=== PATIENT | female | born 1945 | race Hispanic/Latino ===

== ENCOUNTER → 2023-03-21 | Outpatient (CLI) | payer MEDICARE ==
[~2023-03-21] MED LIST: IOHEXOL 350 MG/ML 100ML INFUS..BTL IV ONE
== END | disposition home or self-care (01) ==
LOC: RAH 03-07 07:49
PROVIDERS: ATTEND Student in an Organized Health Care Education/Training Program
DX: R07.9 Chest pain, unspecified (principal); M47.815 Spondylosis without myelopathy or radiculopathy, thoracolumbar region
CPT/HCPCS: 75574; Q9967

== ENCOUNTER 2024-05-19 10:47 | Emergency (ER) | payer OTHER ==
[~2024-05-19] VITALS: Ht 160 cm; Wt 60.8 kg
[~2024-05-19 10:47] MED LIST changes: +AMBROXOL PO; +CHRO1000 PO; -IOHEXOL 350 MG/ML 100ML INFUS..BTL IV ONE; +LORATADINE PO; +MONT-39 PO; +SUPER SUPPLEMENTAL PO; +UBID300C3 PO; +[UNRECOGNIZED DRUG - CODE] PO
[2024-05-19 11:23] LABS: BASOPHILS # (AUTO) 0.02 K/uL (0.00-0.20); BASOPHILS % (AUTO) 0.2 % (0.0-5.0); EOSINOPHILS # (AUTO) 0.01 K/uL (0.00-0.70); EOSINOPHILS % (AUTO) 0.1 % (0.0-8.0); HEMATOCRIT 38.3 % (36-48); IMMATURE GRANULOCYTE ABSOLUTE 0.07 K/uL (0-1); LYMPHOCYTES # (AUTO) 1.6 K/uL (1.0-4.8); LYMPHOCYTES % (AUTO) 12.8 % (21.0-51.0); MEAN CORPUSCULAR HEMOGLOBIN 31.1 pg (27.0-33.0); MEAN CORPUSCULAR HGB CONC 34.7 g/dL (32.0-36.0); MEAN CORPUSCULAR VOLUME 89.7 fL (79-99); MONOCYTES # (AUTO) 1.5 K/uL (0.1-1.0); NEUTROPHILS % (AUTO) 74.3 % (40.0-77.0); PLATELET COUNT (AUTO) 288 K/uL (130-400); RED BLOOD CELL COUNT(AUTO) 4.27 MIL/uL (4.00-5.50); RED CELL DISTRIBUTION WIDTH 14.6 % (11.0-15.5); WHITE BLOOD COUNT (AUTO) 12.1 K/uL (4.8-10.8)
[2024-05-19] MEDS ORDERED: dexaMETHasone SOD PHOSPHATE 4 MG/ML 1ML VIAL IV ONE (11:30)
[2024-05-19 12:03] LABS: CREATININE 0.7 mg/dL (0.5-1.0); POTASSIUM 3.5 mmol/L (3.5-5.1)
[2024-05-19] MEDS: ondanSETRON 4MG INJ IVP ONE (13:35)
[2024-05-19] MEDS: LIDOCAINE HCL 2% VISCOUS 15 ML UDCUP PO ONE (14:26)
[2024-05-19] MEDS: MAG/ALUM/SIMETH 30 ML UDCUP PO ONE (14:26)
[2024-05-19] MEDS: morPHINE 2 MG SYG IVP ONE (14:29)
[2024-05-19] MEDS ORDERED: LACT10SO85 PO (14:49)
[2024-05-19] MEDS ORDERED: DICY20TA2 PO (14:49)
[2024-05-19] MEDS ORDERED: [UNRECOGNIZED DRUG - CODE] PR (14:49)
[2024-05-19 15:18] VITALS: BP 145/86; PULSE 78; RESP 18; TEMP 98.5; O2SAT 98
== END 2024-05-19 15:19 | disposition home or self-care (01) ==
LOC: EDH 10:47
DX: G89.18 Other acute postprocedural pain (principal); Z79.899 Other long term (current) drug therapy; Z98.890 Other specified postprocedural states
CPT/HCPCS: 99283; 96374; 82270; 80048; 85025; 36415; J1100; J2405

== ENCOUNTER 2024-07-08 08:47 | Emergency (ER) | payer OTHER ==
[~2024-07-08] VITALS: Ht 160 cm; Wt 59.0 kg
[2024-07-08 08:47] VITALS: BP 140/88; PULSE 84; RESP 20; TEMP 98.8
[~2024-07-08 08:47] MED LIST changes: +DICY20TA2 PO; +LACT10SO85 PO; +[UNRECOGNIZED DRUG - CODE] PR
--- NOTE | 2024-07-08 09:23 | ERN ---
ED Note History of Present Illness Stated Complaint: FACIAL PAIN S/P SINUS SX A WEEK AGO, VOMITING Chief Complaint: Face Pain/Problem Time Seen by MD: 09:06 Dictation: 78-year-old female presents to the ED for evaluation of facial pain onset 1 week ago. Patient reports vomiting, abdominal pain, but denies any other associated symptoms at this time. Patient mentioned she had a sinus infection 1 week ago, she also mentioned she had an endoscopy, colonoscopy procedure performed while ago which showed gastric ulcers. Allergies: Coded Allergies: No Known Drug Allergies (Unverified Allergy, Unknown, 05/12/24) Home Meds Active Scripts Hydrocortisone (Proctocream-Hc) 2.5 % Cream..g., 1 APPL NM BID for 14 Days, #30 GM 0 Refills Prov:FORREST WHITE NP 05/19/24 Lactulose (Lactulose) 10 Gram/15 Ml Solution, 30 ML PO BID for constipation, #500 ML 0 Refills Prov:FORREST WHITE NP 05/19/24 Dicyclomine HCl (Bentyl) 20 Mg Tab, 1 TAB PO TID for irritable bowel symptoms for 10 Days, #30 TAB 0 Refills Prov:FORREST WHITE NP 05/19/24 Reported Medications [Super Supplemental] No Conflict Check, 1 TAB PO AM 05/13/24 Ubidecarenone (Co Q-10) 300 Mg Capsule, 300 MG PO HS, CAP 05/13/24 [Loratadina/Ambroxol] 5MG-30MG No Conflict Check, 1 TAB PO AM 05/13/24 [Nutri-Calm] No Conflict Check, 1 TAB PO HS 05/13/24 Chromium Picolinate (Chromium Picolinate) 1,000 Mcg Tablet, 1000 MCG PO AM, TAB 05/13/24 Montelukast Sodium (Montelukast Sodium) 10 Mg Tablet, 10 MG PO AM, TAB 05/13/24 Past Medical History Past Medical History: Other Additional Past Medical Hx: HEMMORHOID Surgical History: Other Surgical History Other: HEMORROIDECTOMY, SINUS History: Not Applicable Review of System Dictation Constitutional: Positive for Facial pain Negative for fever,chills, and weight loss Eyes: Negative for injury, pain,redness, and discharge ENT: Negative for injury,pain or swelling Cardiovascular: Negative for chest pain, palpitations, and edema Respiratory: Negative for shortness of breath, cough, and wheezing, Abdomen/GI: Positive for abdominal pain, nausea, vomiting,negative for diarrhea, and constipation Back: Negative for injury and pain : Negative for injury, bleeding and discharge MS/Extremity: Negative for injury and deformity Skin: Negative for rash, and discoloration Neuro: Positive for headache, Negative for weakness, numbness, tingling, and seizure Psych: Negative for suicide ideation, homicidal ideation, and hallucinations Initial Vital Sign VS Vital Signs Date Time Temp Pulse Resp B/P (MAP) Pulse Ox O2 Delivery O2 Flow Rate FiO2 07/08/24 08:47 98.8 84 20 140/88 100 Room Air 0 Physical Exam Dictation General: awake, alert, NAD Head/Face: Normocephalic, atraumatic Eyes: PERRL, EOMI, vision at baseline ENT: oral cavity clear, TMs clear, no signs of infection Neck: Trachea midline, supple, no nuchal rigidity Cardiovascular: RRR, normal S1/S2, No MRGs, no JVD Respiratory: CTAB, no respiratory distress, No rales or wheezes Abdomen: Soft, non-tender, non-distended, normal bowel sounds, no guarding or rebound. Skin: Warm, dry, normal turgor, no rash MS/Extremity: Pulses equal, no cyanosis, neurovascular intact, FROM Neuro: COAx4, GCS 15, strength 5/5, CN 2-12 intact, normal cerebellar exam, normal gait, Psych: Normal behavior, mood, and affect normal ED Course ED Course Orders Procedure Category Date Status Time 12 Lead Ekg Tracing- EKG 07/08/24 Logged Technical 10:09 Chest 1vw RAD 07/08/24 Logged 10:09 Covid19 (Sars Antigen LAB 07/08/24 Logged Rapid) 10:11 Influenza Type A & B, LAB 07/08/24 Logged Rapid 10:11 Ondansetron 4mg Inj PHA 07/08/24 Complete (Zofran 4mg Inj) 10:30 0.9% Nacl 500ml PHA 07/08/24 Complete Iv.Soln (Ns 500ml 10:30 Current Medications Medications (Trade) Dose Ordered Sig/Ihsan Route PRN Reason Start Time Stop Time Status Last Admin Dose Admin Ondansetron HCl (zoFRAN 4MG INJ) 4 mg ONCE ONCE IVP 07/08/24 10:30 07/08/24 10:17 DC Sodium Chloride 500 ml @ 0 mls/hr ONCE ONCE IV 07/08/24 10:30 07/08/24 10:17 DC Vital Signs Date Time Temp Pulse Resp B/P (MAP) Pulse Ox O2 Delivery O2 Flow Rate FiO2 07/08/24 08:47 98.8 84 20 140/88 100 Room Air 0 Medical Decision Making MDM MDM: Differential diagnosis: Generalized weakness, abdominal pain, facial pain Previous outside records reviewed: Old ER visits. Need for hospitalization: Patient does not meet criteria for hospitalization. Need for emergency major/minor surgery: No Patient's prior external medical records from other ER visits were reviewed by me as indicated. Prior testing and results from previous visits were reviewed. Prior tests were taken into account with medical decision making and resource utilization, independent historian/historians were used to obtain complete medical history. I independently interpreted the test that were performed, results were reviewed by me and considered findings on radiology if ordered. Medical management and examination interpretation discussions were had by me with other qualified healthcare professionals as indicated for the patient's care. 10:16 a.m.: Patient eloped DX & DISP Disposition: Other(Comment) (Patient eloped at 10:16 a.m.) Departure Impression: Primary Impression: Facial pain Additional Impression: Abdominal pain Condition: Other(comment) (Patient eloped) Referrals: SHIRLENE GREGORY (PCP) I have reviewed, & agreed with my scribe's, documentation. (Entered by Jack Schroeder, acting as a scribe for Dr. Walker) I personally scribed for VIKKI WALKER MD ([email or web address]) on 07/08/24 at 09:23. Electronically submitted by Jack Schroeder ([email or web address]). VIKKI WALKER MD Jul 08, 2024 09:23
[2024-07-08] MEDS ORDERED: ondanSETRON 4MG INJ IVP ONE (10:30)
[2024-07-08] MEDS ORDERED: 0.9% NACL 500ML IV.SOLN 500 ML IV ONE (10:30)
== END 2024-07-08 10:17 | disposition left against medical advice (07) ==
LOC: EDH 08:47
DX: R51.9 Headache, unspecified (principal); R10.9 Unspecified abdominal pain
CPT/HCPCS: 99281